=== PATIENT | male | born 1945 | race Caucasian/White ===

== ENCOUNTER 2017-04-14 04:44 | Emergency (ER) | payer MEDICARE, MEDICAID, OTHER ==
[2017-04-14] MEDS ORDERED: HEPARIN 25,000 UNITS/250 ML D5W BAG (100 UNITS/ML) (04:45)
[2017-04-14] MEDS ORDERED: NITROGLYCERIN 0.4 MG SUBL TABLET (04:45)
[2017-04-14] MEDS ORDERED: CLOPIDOGREL 300 MG TAB (PLAVIX) (04:45)
[2017-04-14] MEDS ORDERED: ASPIRIN 81 MG CHEW TABLET (04:45)
[2017-04-14] MEDS ORDERED: METOPROLOL 5 MG/5 ML VIAL (04:45)
[2017-04-14 05:05] LABS: BEDSIDE GLUCOSE 150 MG/DL (83-110)
[2017-04-14] MEDS: NITROGLYCERIN 0.4 MG SUBL TABLET SL ×3 (05:06→05:37)
[2017-04-14] MEDS: ASPIRIN 81 MG CHEW TABLET PO (05:06)
[2017-04-14] MEDS ORDERED: METOPROLOL 5 MG/5 ML VIAL As Ordered (05:07)
[2017-04-14] MEDS: HEPARIN SOD (PORCINE) 5000 UNITS/ML VIAL IV (05:09)
[2017-04-14] MEDS: METOPROLOL 5 MG/5 ML VIAL IV (05:13)
[2017-04-14 05:14] LABS: HEMOGLOBIN 16.2 g/dl (14.0-18.0); MEAN CORPUSCULAR HEMOGLOBIN 30.5 pg (27.0-33.0); MEAN CORPUSCULAR HGB CONC 33.1 g/dl (32.0-36.5); MEAN CORPUSCULAR VOLUME 92.1 fl (80.0-96.0); PLATELET COUNT, AUTOMATED 326 10^3/uL (150-450); RED BLOOD COUNT 5.32 10^6/uL (4.30-6.10); RED CELL DISTRIBUTION WIDTH 13.2 % (11.5-14.5)
[2017-04-14] MEDS: TENECTEPLASE 50 MG KIT (TNKase)(J3101) IV (05:16)
[2017-04-14] MEDS: HEPARIN DRIP 25,000 UNITS in APPROPRIATE DILUENT 1 EA IV (05:22)
[2017-04-14 05:23] LABS: POSITIVE DIFF POS FLAG; WHITE BLOOD COUNT 15.4 10^3/uL (4.0-10.0)
[2017-04-14] MEDS: CLOPIDOGREL 300 MG TAB (PLAVIX) PO (05:23)
[2017-04-14 05:24] LABS: ADD MANUAL DIFFER YES; DIFF SLIDE NUMBER 100
[2017-04-14 05:28] LABS: PROTHROMBIN TIME 12.2 SECONDS (12.4-14.5)
[2017-04-14 05:29] LABS: PARTIAL THROMBOPLASTIN TIME 30.7 SECONDS (26.8-37.9)
[2017-04-14] MEDS: MORPHINE 2 MG/ML 1ML SYRINGE (J2270) IV ×4 (05:34→05:59)
[2017-04-14 05:38] LABS: ANION GAP 6 MEQ/L (8-16); BLOOD UREA NITROGEN 17 MG/DL (7-18); CALCIUM LEVEL 10.4 MG/DL (8.8-10.2); CARBON DIOXIDE LEVEL 30 MEQ/L (21-32); CHLORIDE LEVEL 103 MEQ/L (98-107); CK-MB VALUE MASS 5.6 NG/ML (0.0-3.6); CPK CREATINE PHOSPHOKINASE 118 U/L (39-308); CREATININE FOR GFR 0.94 MG/DL (0.70-1.30); EOSINOPHILS 2 % (0-5); GLOMERULAR FILTRATION RATE > 60.0 (>42); GLUCOSE, FASTING 160 MG/DL (70-100); LYMPHOCYTES 36 % (16-52); MB/CK RELATIVE INDEX 4.74 (< OR =4); MONOCYTES 7 % (0-8); NEUTROPHILS 55 % (35-75); PLATELET ESTIMATE INCREASED (NORMAL); SODIUM LEVEL 139 MEQ/L (136-145)
[2017-04-14 05:48] LABS: TROPONIN I 1.93 NG/ML (< 0.10)
[2017-04-14] MEDS ORDERED: HEPARIN 25,000 UNITS/250 ML D5W BAG (100 UNITS/ML) As Ordered (09:19)
== END 2017-04-14 06:12 | disposition short-term general hospital (02) ==
LOC: M ED 04:44
DX: I21.19 ST elevation (STEMI) myocardial infarction involving other coronary artery of inferior wall (principal); R06.02 Shortness of breath; R00.0 Tachycardia, unspecified; F32.9 Major depressive disorder, single episode, unspecified; F17.210 Nicotine dependence, cigarettes, uncomplicated
CPT/HCPCS: J3101

== ENCOUNTER 2018-04-09 16:48 | Inpatient (IN) | payer MEDICARE ==
[~2018-04-09] VITALS: Ht 175.3 cm; Wt 95.0 kg
[2018-04-09] MEDS ORDERED: NS 1,000 ML IV ONE (17:15)
--- NOTE | 2018-04-09 17:37 | REP ---
Clinical: Syncope. Comparison: 04/14/2017. Findings: The mediastinum and cardiac silhouette are stable and within normal limits for portable technique. The lung gonzalez are clear without acute consolidation, effusion, or pneumothorax. Skeletal structures are intact. Impression: No acute cardiopulmonary process appreciated. Electronically Signed by Vahe Hitchcock MD 04/09/2018 05:28 P
--- NOTE | 2018-04-09 17:47 | REP ---
Clinical: Syncope. Findings: Age-related atrophy and microvascular ischemic changes are appreciated. The ventricles and sulci are symmetric. Shields-white differentiation is maintained. There is no evidence for acute intracranial hemorrhage, mass/mass effect, pathology or infarction. No extra-axial fluid collection. Calvarium is intact. Mastoid air cells are clear. Impression: Age related atrophy and microvascular ischemic changes. No acute intracranial hemorrhage, infarction, or mass/mass effect. Electronically Signed by Vahe Hitchcock MD 04/09/2018 05:38 P
--- NOTE | 2018-04-09 17:51 | REP ---
Clinical: Syncope. Technique: Axial noncontrast images from the skull base to the thoracic inlet with coronal and sagittal re-formations Findings: Advanced multilevel degenerative changes include osteophytosis, endplate sclerosis, disc space narrowing and exaggerated lordosis. There is no evidence for acute fracture / compression injury or subluxation. Spinal canal is patent. Paravertebral soft tissues are normal. Impression: Advanced multilevel degenerative spondylosis. No evidence for acute pathology or trauma/injury. Electronically Signed by Vahe Hitchcock MD 04/09/2018 05:42 P
[2018-04-09 19:21] LABS: BASO % 0.3 % (0.0-1.0); EOS # 0.1 10^3/uL (0.0-0.50); EOS % 0.7 % (0.0-3.0); HEMATOCRIT 43.3 % (42.0-52.0); HEMOGLOBIN 14.3 g/dl (13.5-17.5); LYMPH # 0.5 10^3/uL (1.5-4.5); LYMPH % 4.5 % (24.0-44.0); MEAN CORPUSCULAR VOLUME 93.9 fl (80.0-96.0); MONO # 0.9 10^3/uL (0.0-0.8); MONO % 7.3 % (0.0-5.0); NEUTROPHILS # 10.4 10^3/uL (1.8-7.7); NEUTROPHILS % 86.8 % (36.0-66.0); PLATELET COUNT, AUTOMATED 239 10^3/uL (150-450); RED BLOOD COUNT 4.61 10^6/uL (4.30-6.10)
[2018-04-09 19:34] LABS: INR 1.01; PROTHROMBIN TIME 13.4 SECONDS (12.1-14.4)
[2018-04-09 19:35] LABS: PARTIAL THROMBOPLASTIN TIME 31.2 SECONDS (25.4-37.6)
[2018-04-09 19:41] LABS: AMPHETAMINES LEVEL URINE NEGATIVE (NEGATIVE); BARBITURATES URINE NEGATIVE (NEGATIVE); BENZODIAZEPINES URINE NEGATIVE (NEGATIVE); CANNABINOIDS URINE NEGATIVE (NEGATIVE); COCAINE METABOLITE URINE NEGATIVE (NEGATIVE); METHADONE URINE NEGATIVE (NEGATIVE); OPIATES URINE NEGATIVE (NEGATIVE); PHENCYCLIDINE URINE NEGATIVE (NEGATIVE)
[2018-04-09 19:49] LABS: BLOOD UREA NITROGEN 15 MG/DL (7-18); CALCIUM LEVEL 8.4 MG/DL (8.8-10.2); CARBON DIOXIDE LEVEL 24 MEQ/L (21-32); CHLORIDE LEVEL 105 MEQ/L (98-107); CPK CREATINE PHOSPHOKINASE 138 U/L (39-308); CREATININE FOR GFR 0.91 MG/DL (0.70-1.30); ETHYL ALCOHOL (ETHANOL) 0.006 % (0.000-0.010); FREE T4 1.14 NG/DL (0.76-1.46); GLOMERULAR FILTRATION RATE > 60.0 (>42); GLUCOSE, FASTING 89 MG/DL (70-100); MAGNESIUM LEVEL 1.8 MG/DL (1.8-2.4); MB/CK RELATIVE INDEX 1.09 (< OR =4); POTASSIUM SERUM 3.7 MEQ/L (3.5-5.1); SODIUM LEVEL 138 MEQ/L (136-145); TROPONIN I 0.03 NG/ML (< 0.10)
[2018-04-09 19:51] LABS: INFLUENZA A AMPLIFICATION POSITIVE (NEGATIVE); INFLUENZA B AMPLIFICATION NEGATIVE (NEGATIVE)
[2018-04-09] MEDS ORDERED: OSELTAMIVIR PHOSPHATE 75 MG CAP (TAMIFLU) PO ONE (20:15)
[2018-04-09] MEDS ORDERED: FISH7.5C PO (20:21)
[2018-04-09] MEDS ORDERED: NITR0.4S14 SL (20:21)
[2018-04-09] MEDS ORDERED: FURO20TA2 PO (20:21)
[2018-04-09] MEDS ORDERED: PANT40TA3 PO (20:21)
[2018-04-09] MEDS ORDERED: NYQU1CAP PO (20:21)
[2018-04-09] MEDS ORDERED: LISI2.5T5 PO (20:21)
[2018-04-09] MEDS ORDERED: CLOP75TA2 PO (20:21)
[2018-04-09] MEDS ORDERED: ATOR80TA59 PO (20:21)
[2018-04-09] MEDS ORDERED: CARV12.5 PO (20:21)
[2018-04-09] MEDS ORDERED: ACETAMINOPHEN TAB 650MG DOSE (2X325MG) As Ordered ONE (20:22)
[2018-04-09] MEDS: NS 1,000 ML IV SCH (20:28)
[2018-04-09] MEDS ORDERED: ONDANSETRON 4MG/2ML VIAL (J2405) IV PRN (20:30)
[2018-04-09] MEDS ORDERED: IPRATROPIUM 0.5MG/ALBUTEROL 2.5MG INH SOL UD 3ML (DUONEB)(J7620) NEB PRN (20:30)
[2018-04-09] MEDS: ACETAMINOPHEN TAB 650MG DOSE (2X325MG) PO PRN (20:41)
[2018-04-09] MEDS ORDERED: NITROGLYCERIN 0.4 MG SUBL TABLET SL PRN (20:45)
[2018-04-09] MEDS: CARVedilol 12.5 MG TAB PO SCH (21:00)
[2018-04-09] MEDS: HEPARIN SOD (PORCINE) 5000 UNITS/ML VIAL SC SCH (22:00)
--- NOTE | 2018-04-10 03:02 | HPE ---
DATE OF ADMISSION: 04/09/2018 CHIEF COMPLAINT: Cough, runny nose, diarrhea, body aches, a syncopal episode. HISTORY OF PRESENT ILLNESS: The patient is a 72-year-old male with a significant past medical history of coronary artery disease (CAD), hypertensive heart disease. He presents to the emergency room with a syncopal episode today which he states he was at the gas station. While he was walking out he felt generalized weakness, complete loss of consciousness. He has no focal neurological deficits. He denied any chest pain, shortness of breath. He denied any jerky type movements, urinary incontinence or tongue biting. Prior to the onset of the symptoms for the last day and a half the patient has been having a cough with runny nose, achy joints, nausea and vomiting today as well as diarrhea. In the emergency room he was noted to be flu positive. PAST MEDICAL HISTORY: See history of the present illness (HPI). PAST SURGICAL HISTORY: Wrist surgery. HOME MEDICATIONS: Include: - Lipitor - Coreg - Plavix - Lasix - lisinopril - nitroglycerin as needed - Protonix ALLERGIES: No known drug allergies. SOCIAL HISTORY: He is a former smoker. Denies alcohol or illicit drug use. FAMILY HISTORY: Family history of heart disease and cancers. REVIEW OF SYSTEMS: A 12-point review of systems was completed, all of which were negative except those listed in the history of the present illness. VITAL SIGNS ON ADMISSION: Temperature maximum (T-max) 101, pulse of 120, respirations of 24, saturating at 99% on room air. PHYSICAL EXAMINATION: General: He is well nourished, in no apparent distress. Head is normocephalic, atraumatic. Eyes: Extraocular movements are intact. Pupils equal, round, reactive to light. Neck is supple. No jugular venous pressure (JVP). Lungs: Clear to auscultation. No crackles or wheezes. Cardiovascular: Tachycardic, normal S1, S2. No murmurs, gallops, or rubs. Abdomen: Soft, nontender, nondistended, positive bowel sounds. No rebound or guarding. Extremities: No pitting edema or calf tenderness. Skin: Multiple excoriations and papules disseminated. Neurological: Alert and oriented (A and O) times three. No focal deficits appreciated on the examination. LABORATORIES AND IMAGING COMPLETED IN THE EMERGENCY ROOM: White count of 12, hemoglobin and hematocrit (H and H) of 14/43, platelet count of 239. Coagulation panel (coags) within normal limits. Chemistry: BUN and creatinine 15/0.19. Toxicology is unremarkable. Influenza A is positive. IMAGING: CT of the cervical spine (C-spine): Advanced multilevel degenerative spondylolysis. No evidence of acute pathology or trauma. Chest x-ray: No acute cardiopulmonary process appreciated. CT of the head: Microvascular ischemic changes. ASSESSMENT AND PLAN: 1. Syncope likely due to sepsis secondary to influenza A. Will start on intravenous (IV) fluids, Tamiflu, oxygen as needed, DuoNebs, intravenous (IV) fluids. Will rule out other causes, though unlikely. Will keep on telemetry to rule out arrhythmia. Will recycle the troponins. Will get an echocardiogram and ultrasound, carotid Dopplers as well as do daily orthostatics. 2. For history of coronary artery disease (CAD), hypertensive heart disease: Will continue his home medications, Coreg, lisinopril, Lasix, Plavix. 3. For gastroesophageal reflux disease (GERD): Will continue Prilosec. 4. Supportive deep vein thrombosis (DVT) prophylaxis: Heparin subcutaneous. 5. Gastrointestinal (GI) prophylaxis: The patient is on Protonix. 6. Diet: Cardiac.
[2018-04-10] MEDS: HEPARIN SOD (PORCINE) 5000 UNITS/ML VIAL SC SCH ×3 (05:58→20:59)
[2018-04-10 07:26] LABS: HEMATOCRIT 39.6 % (42.0-52.0); HEMOGLOBIN 13.1 g/dl (13.5-17.5); MEAN CORPUSCULAR HEMOGLOBIN 30.9 pg (27.0-33.0); MEAN CORPUSCULAR HGB CONC 33.1 g/dl (32.0-36.5); MEAN CORPUSCULAR VOLUME 93.4 fl (80.0-96.0); PLATELET COUNT, AUTOMATED 210 10^3/uL (150-450); RED BLOOD COUNT 4.24 10^6/uL (4.30-6.10); WHITE BLOOD COUNT 9.3 10^3/uL (4.0-10.0)
[2018-04-10] MEDS: NS 1,000 ML IV SCH (07:35)
[2018-04-10 07:53] LABS: BLOOD UREA NITROGEN 12 MG/DL (7-18); CALCIUM LEVEL 7.6 MG/DL (8.8-10.2); CARBON DIOXIDE LEVEL 24 MEQ/L (21-32); CHLORIDE LEVEL 107 MEQ/L (98-107); CREATININE FOR GFR 0.87 MG/DL (0.70-1.30); GLOMERULAR FILTRATION RATE > 60.0 (>42); GLUCOSE, FASTING 89 MG/DL (70-100); POTASSIUM SERUM 3.5 MEQ/L (3.5-5.1); SODIUM LEVEL 138 MEQ/L (136-145)
[2018-04-10] MEDS ORDERED: POTASSIUM CHLORIDE 10 MEQ SR TABLET PO ONE (08:30)
[2018-04-10] MEDS: CARVedilol 12.5 MG TAB PO SCH ×2 (08:40→20:59)
[2018-04-10] MEDS: OMEGA-3 1000MG CAPSULE PO SCH (08:40)
[2018-04-10] MEDS: LISINOPRIL *2.5 MG* TAB PO SCH (08:41)
[2018-04-10] MEDS: PANTOPRAZOLE 40MG TAB (PROTONIX) PO SCH (08:41)
[2018-04-10] MEDS: CLOPIDOGREL 75 MG TAB PO SCH (08:41)
[2018-04-10] MEDS: OSELTAMIVIR PHOSPHATE 75 MG CAP (TAMIFLU) PO SCH ×2 (08:41→20:59)
[2018-04-10] MEDS: ATORVASTATIN 20 MG TAB PO SCH (08:42)
[2018-04-10 09:00] VITALS: BP_SYST 116; BP_SYST 119; BP_SYST 124; BP_DIAS 58; BP_DIAS 60
[2018-04-10] MEDS ORDERED: FUROSEMIDE 20 MG TAB PO SCH (09:00)
[2018-04-10 13:03] VITALS: BP 136/67
--- NOTE | 2018-04-10 14:42 | IPN ---
DATE: 04/10/2018 SUBJECTIVE: Patient admitted overnight with syncope and found to have influenza A. Currently patient reported mild cough. Denies any shortness of breath. Feeling much better. Orthostatic negative. Tolerating oral. Resolving diarrhea. VITAL SIGNS: Temperature 96.8, pulse 80, respirations 20, blood pressure 116/58, pulse oximetry 96% on room air. LABORATORY: WBC 9.3, hemoglobin/hematocrit (H/H) 13.1/39.6, platelets 210. Chemistry: Sodium 138, potassium 3.5, chloride 107, bicarbonate 24, BUN 12, creatinine 0.87. PHYSICAL EXAMINATION: The patient is well nourished in no acute distress. Orthostatic negative. HEENT: Normocephalic, atraumatic. Pulmonary: Bilateral clear. Cardiac: Regular. S1 and S2. Abdomen: Soft. Nontender. Positive bowel sounds. Extremities: No clubbing, cyanosis or edema. ASSESSMENT AND PLAN: This is a 72-year-old male patient with underlying medical history of coronary artery disease, hypertensive heart disease, and dyslipidemia who presented with syncopal episode and found to have influenza A. PROBLEMS: 1. Syncope, likely secondary to influenza A infection with also nausea, vomiting and diarrhea. Tamiflu and IV fluids have been given. Orthostatics have been negative. Echocardiogram and carotid ultrasound have been ordered. Social work has been consulted. Serial cardiac enzymes and telemetry monitoring. Physical therapy. 2. Influenza A infection. Tamiflu. 3. Nausea, vomiting and diarrhea likely secondary to viral infection. Currently resolved. Tolerating oral. 4. History of coronary artery disease with hypertensive heart disease. Continue Coreg and Plavix. Lasix on hold. Continue lisinopril. Monitor blood pressure. 5. Bed bugs. soaker soda worker on consult. Contact precautions. Supportive care. 6. Dyslipidemia. Continue statin. 7. Deep vein thrombosis (DVT) prophylaxis. Heparin subcutaneous. 8. Gastroesophageal reflux disease (GERD. Continue proton pump inhibitor (PPI). DISPOSITION: Pending social sciences lecturer, physical therapy, carotid ultrasound, echocardiogram.
[2018-04-10 20:53] VITALS: BP 119/86
--- NOTE | 2018-04-10 21:36 | ECGEPIP ---
Stationary ECG Study [facility] Test Date: 2018-04-10 Pat Name: STEPHANIE ELIZALDE Department: Room: Gender: M Roller Leveler: alyse : 1945 Requested By: SOPHIA MURILLO Order Number: [id number] Reading MD: Natalio Calix Measurements Intervals [place] Rate: 73 P: 75 AK: 153 QRS: -23 QRSD: 96 T: -25 QT: 405 QTc: 449 Interpretive Statements SINUS RHYTHM WITH MILD INTRAVENTRICULAR CONDUCTION DELAY INFERIOR MYOCARDIAL INFARCTION, OF INDETERMINATE AGE NO PRIOR TRACING IN THE SYSTEM Electronically Signed On 04-10-2018 21:35:54 EST by Natalio Calix
[2018-04-11] MEDS: HEPARIN SOD (PORCINE) 5000 UNITS/ML VIAL SC SCH ×3 (05:56→21:20)
[2018-04-11 06:00] VITALS: BP 136/76
[2018-04-11 06:44] LABS: HEMATOCRIT 40.3 % (42.0-52.0); HEMOGLOBIN 13.1 g/dl (13.5-17.5); MEAN CORPUSCULAR HGB CONC 32.5 g/dl (32.0-36.5); MEAN CORPUSCULAR VOLUME 95.3 fl (80.0-96.0); PLATELET COUNT, AUTOMATED 208 10^3/uL (150-450); RED BLOOD COUNT 4.23 10^6/uL (4.30-6.10); WHITE BLOOD COUNT 5.8 10^3/uL (4.0-10.0)
[2018-04-11 06:58] LABS: BLOOD UREA NITROGEN 14 MG/DL (7-18); CALCIUM LEVEL 7.7 MG/DL (8.8-10.2); CARBON DIOXIDE LEVEL 26 MEQ/L (21-32); CHLORIDE LEVEL 111 MEQ/L (98-107); CREATININE FOR GFR 0.83 MG/DL (0.70-1.30); GLOMERULAR FILTRATION RATE > 60.0 (>42); GLUCOSE, FASTING 93 MG/DL (70-100); MAGNESIUM LEVEL 2.2 MG/DL (1.8-2.4); POTASSIUM SERUM 4.1 MEQ/L (3.5-5.1); SODIUM LEVEL 142 MEQ/L (136-145)
[2018-04-11] MEDS: OSELTAMIVIR PHOSPHATE 75 MG CAP (TAMIFLU) PO SCH ×2 (09:00→21:21)
[2018-04-11] MEDS: CLOPIDOGREL 75 MG TAB PO SCH (09:23)
[2018-04-11] MEDS: LISINOPRIL *2.5 MG* TAB PO SCH (09:23)
[2018-04-11] MEDS: CARVedilol 12.5 MG TAB PO SCH ×2 (09:24→21:20)
[2018-04-11] MEDS: ATORVASTATIN 20 MG TAB PO SCH (09:24)
[2018-04-11] MEDS: PANTOPRAZOLE 40MG TAB (PROTONIX) PO SCH (09:24)
--- NOTE | 2018-04-11 10:11 | IPNPDOC ---
Text Note Date of Service The patient was seen on 04/11/18. NOTE Subjective: Patient is a 72-year-old male who presented to the hospital on 04/09/2018 after passing out at the gas station. Patient says that for the 2-3 days prior he had been dealing with a runny nose, coughing, body aches. Patient was found to be influenza A positive. Patient also had bedbug bites on his body. Today, the patient, patient says he is feeling better. He's been able to get up and walk around. He was experiencing some nausea vomiting and diarrhea prior to coming in the hospital however, he says this is subsided. He's been eating and drinking without difficulty. He did have a normal bowel movement yesterday and has not had a bowel movement yet today. Patient was able to pass PT today. Patient says he does have some mild muscle aches however, these are much imp roved from his previous muscle aches. Review of systems General: Patient denies fevers HEENT: Patient denies headaches Cardiovascular: Patient denies chest pain Respiratory: Patient denies shortness of breath, cough GI: Patient denies abdominal pain, nausea, vomiting, diarrhea : Patient denies pain or difficulty with urination Neurological: Patient denies numbness or tingling in extremities Extremities: Patient denies swelling or pain in extremities Objective: Vitals: (see below) General: Alert and oriented male patient who was sitting on the side of the bed drinking coffee when I walked in. Patient was in no acute distress HEENT: Normocephalic, atraumatic, moist mucous membranes. Neck: No JVD or lymphadenopathy Cardiac: RRR, No murmurs Pulm: Clear to auscultation b/l. No wheezing, rhonchi Abd: NT/ND + BS Ext: No edema or cyanosis. Radial, posterior tibial, and dorsalis pedis pulses equal bilaterally. Labs (see below) Images: Carotid ultrasound and echocardiogram are still pending. Assessment/Plan 1. Syncope. This is most likely secondary to influenza A infection. Patient has not felt like he is going to syncopize since being in the hospital. Orthostatic blood pressure was negative. Echocardiogram and carotid ultrasound are still pending. Telemetry monitoring his showed no events. Patient has been cleared by physical therapy. 2. Influenza A infection. Patient is currently on day 3 of 5 of Tamiflu. We'll continue to monitor. 3. Nausea, vomiting, and diarrhea. This is likely secondary to patient's viral infection. It is resolved and the patient is tolerating oral intake without difficulty. 4. History of coronary artery disease with hypertensive heart disease. We're continuing carvedilol and clopidogrel. Lasix currently on hold due to syncope. We will continue his lisinopril and monitor the patient's blood pressure. 5. Bed bugs. Social workers on consult. We will have to contact them to make sure someone is going to clean the patient's house in order to read the bed bugs. Patient is not complaining of any itching at this time. 6. Dyslipidemia. We'll continue patient's home statin 7. Gastroesophageal reflux disease. Continue the patient's home PPI DVT prophy: Heparin subcutaneous Dispo: Pending carotid ultrasound, echocardiogram, and social services analyst. VS,Fishbone, I+O VS, Fishbone, I+O Laboratory Tests 04/11/18 06:28 Red Blood Count 4.23 L, Mean Corpuscular Volume 95.3, Mean Corpuscular Hemoglobin 31.0, Mean Corpuscular Hemoglobin Concent 32.5, Red Cell Distribution Width 13.8, Calcium Level 7.7 L Vital Signs Date Time Temp Pulse Resp B/P (MAP) Pulse Ox O2 Delivery O2 Flow Rate FiO2 04/11/18 09:24 75 136/76 04/11/18 06:00 97.8 20 94 04/10/18 04:21 Nasal Cannula 2.0 I&O- Last 24 Hours up to 6 AM 04/11/18 06:00 Intake Total 2910 ml Output Total 1000 ml Balance 1910 ml GME ATTESTATION GME ATTESTATION My faculty preceptor for this patient encounter was physically present during the encounter and was fully available. All aspects of the patient interview, examination, medical decision making process, and medical care plan development were reviewed and approved by the faculty preceptor. The faculty preceptor is aware and concurs with the plan as stated in the body of this note and will attest to such by his/her cosignature. ATTENDING NOTE I have both independently examined this patient as well as reviewed the note I have discussed in detail the findings and plan of treatment as documented in the note. I will continue to follow the patient and offer further guidance to the patients care as necessary during this hospital stay. BOOGIE De La Vega MD, DO Apr 11, 2018 10:11 SARAH BETH GUERRERO MD Apr 15, 2018 17:29
[2018-04-11] MEDS: OMEGA-3 1000MG CAPSULE PO SCH (10:51)
[2018-04-11 14:00] VITALS: BP 120/75
[2018-04-11] MEDS: ACETAMINOPHEN TAB 650MG DOSE (2X325MG) PO PRN (21:27)
[2018-04-11 22:00] VITALS: BP 121/68
[2018-04-12] MEDS: HEPARIN SOD (PORCINE) 5000 UNITS/ML VIAL SC SCH ×3 (05:04→21:36)
[2018-04-12 06:00] VITALS: BP 123/74
[2018-04-12 06:08] LABS: HEMATOCRIT 40.7 % (42.0-52.0); HEMOGLOBIN 13.1 g/dl (13.5-17.5); MEAN CORPUSCULAR HEMOGLOBIN 30.8 pg (27.0-33.0); MEAN CORPUSCULAR HGB CONC 32.2 g/dl (32.0-36.5); MEAN CORPUSCULAR VOLUME 95.5 fl (80.0-96.0); PLATELET COUNT, AUTOMATED 222 10^3/uL (150-450); RED BLOOD COUNT 4.26 10^6/uL (4.30-6.10); WHITE BLOOD COUNT 5.9 10^3/uL (4.0-10.0)
[2018-04-12 06:39] LABS: BLOOD UREA NITROGEN 13 MG/DL (7-18); CALCIUM LEVEL 7.9 MG/DL (8.8-10.2); CARBON DIOXIDE LEVEL 26 MEQ/L (21-32); CHLORIDE LEVEL 109 MEQ/L (98-107); CREATININE FOR GFR 0.76 MG/DL (0.70-1.30); GLOMERULAR FILTRATION RATE > 60.0 (>42); GLUCOSE, FASTING 90 MG/DL (70-100); MAGNESIUM LEVEL 2.4 MG/DL (1.8-2.4); POTASSIUM SERUM 4.1 MEQ/L (3.5-5.1); SODIUM LEVEL 142 MEQ/L (136-145)
--- NOTE | 2018-04-12 08:36 | REP ---
Clinical: Syncope . Technique: Shields scale and color Doppler evaluation using linear high frequency transducer Findings: Two-dimensional shields scale and color images demonstrate minimal bilateral mixed atheromatous plaquing with normal laminar flow and no appreciable narrowing. Color Doppler interrogation demonstrates normal arterial wave patterns and velocities with no significant spectral broadening. Normal flow direction is appreciated in the left vertebral artery while the right vertebral artery was not identifiable. RIGHT (cm/s) LEFT (cm/s) ICA peak systolic velocity 86.0 57.7 ICA diastolic velocity 17.5 15.0 ECA peak systolic velocity 91.2 110.1 CCA peak systolic velocity 87.9 73.1 ICA/CCA ratio 0.98 0.79 Impression: 1. No hemodynamically significant areas of narrowing or stenosis appreciated. Based on set standards narrowing falls within the less than 50% range. 2. Nonvisualization of the right vertebral artery. Electronically Signed by Vahe Hitchcock MD 04/12/2018 08:27 A
[2018-04-12] MEDS: PANTOPRAZOLE 40MG TAB (PROTONIX) PO SCH (09:12)
[2018-04-12] MEDS: CLOPIDOGREL 75 MG TAB PO SCH (09:12)
[2018-04-12] MEDS: OSELTAMIVIR PHOSPHATE 75 MG CAP (TAMIFLU) PO SCH ×2 (09:12→20:18)
[2018-04-12] MEDS: ATORVASTATIN 20 MG TAB PO SCH (09:12)
[2018-04-12] MEDS: OMEGA-3 1000MG CAPSULE PO SCH (09:12)
[2018-04-12] MEDS: LISINOPRIL *2.5 MG* TAB PO SCH (09:12)
[2018-04-12] MEDS: CARVedilol 12.5 MG TAB PO SCH ×2 (09:13→20:51)
[2018-04-12 14:00] VITALS: BP 120/70
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
--- NOTE | 2018-04-12 19:28 | ECHO ---
DATE OF PROCEDURE: 04/11/2018 REFERRING PHYSICIAN: Anali Thompson MD INDICATION: Syncope. HEIGHT: 175 cm WEIGHT: 95 kg 2D MEASUREMENTS: Aortic root: 3.3 cm Left atrium: 4.2 cm Ventricular septum: 1.07 cm Posterior wall: 1.06 cm Left ventricle diastole: 5.3 cm Aortic annulus: 2.2 cm Inferior vena cava: 1.8 cm DOPPLER MEASUREMENTS: Aortic valve velocity: 125 cm/s LVOT velocity: 83.5 cm LVOT VTI: 17.8 cm Mitral E velocity: 66.6 cm/s Mitral A velocity: 54.3 cm/s Mitral deceleration time: 156 ms Trace tricuspid regurgitation. Estimated pulmonary artery systolic pressure 33 mmHg. MITRAL ANNULAR TISSUE DOPPLER: E prime septal: 7.0 cm/s E prime lateral: 8.9 cm/s DESCRIPTION: Rhythm was sinus rhythm and sinus bradycardia observed. Image quality was fair. No pericardial effusion. This was a 2D, M-mode, color flow Doppler and pulse wave Doppler examination that included mitral annular tissue Doppler. CONCLUSIONS: 1. Normal left ventricle internal dimensions and wall thickness. Normal regional left ventricle (LV) wall motion and wall thickening. Normal LV systolic function. Left ventricular ejection fraction (LVEF) 55% by visual estimate. Normal LV diastolic function. 2. Suggestive of slight elevation of pulmonary artery systolic pressure (33 mmHg). 3. Mild aortic valve sclerosis of a three-cuspid aortic valve involving the posterior aortic cusp. No aortic regurgitation. 4. Normal central venous pressure at the time of the study (estimated to be 5-10 mmHg. 5. Otherwise normal appearing echocardiogram Doppler.
[2018-04-12] MEDS: ACETAMINOPHEN TAB 650MG DOSE (2X325MG) PO PRN (20:17)
[2018-04-12 22:00] VITALS: BP 116/64
[2018-04-13] MEDS: HEPARIN SOD (PORCINE) 5000 UNITS/ML VIAL SC SCH (05:30)
[2018-04-13 06:00] VITALS: BP 118/72
[2018-04-13 06:33] LABS: MEAN CORPUSCULAR HEMOGLOBIN 30.8 pg (27.0-33.0); MEAN CORPUSCULAR HGB CONC 32.5 g/dl (32.0-36.5); MEAN CORPUSCULAR VOLUME 94.8 fl (80.0-96.0); PLATELET COUNT, AUTOMATED 242 10^3/uL (150-450); RED BLOOD COUNT 4.22 10^6/uL (4.30-6.10); WHITE BLOOD COUNT 6.8 10^3/uL (4.0-10.0)
[2018-04-13 06:52] LABS: BLOOD UREA NITROGEN 12 MG/DL (7-18); CALCIUM LEVEL 8.1 MG/DL (8.8-10.2); CARBON DIOXIDE LEVEL 28 MEQ/L (21-32); CHLORIDE LEVEL 108 MEQ/L (98-107); CREATININE FOR GFR 0.88 MG/DL (0.70-1.30); GLOMERULAR FILTRATION RATE > 60.0 (>42); GLUCOSE, FASTING 91 MG/DL (70-100); MAGNESIUM LEVEL 2.5 MG/DL (1.8-2.4); POTASSIUM SERUM 4.2 MEQ/L (3.5-5.1); SODIUM LEVEL 142 MEQ/L (136-145)
[2018-04-13] MEDS: OSELTAMIVIR PHOSPHATE 75 MG CAP (TAMIFLU) PO SCH (09:05)
[2018-04-13] MEDS: CLOPIDOGREL 75 MG TAB PO SCH (09:05)
[2018-04-13] MEDS: OMEGA-3 1000MG CAPSULE PO SCH (09:05)
[2018-04-13] MEDS: ATORVASTATIN 20 MG TAB PO SCH (09:05)
[2018-04-13] MEDS: PANTOPRAZOLE 40MG TAB (PROTONIX) PO SCH (09:05)
[2018-04-13 09:06] VITALS: BP 118/72
[2018-04-13] MEDS: LISINOPRIL *2.5 MG* TAB PO SCH (09:06)
[2018-04-13] MEDS: CARVedilol 12.5 MG TAB PO SCH (09:06)
[2018-04-13] MEDS ORDERED: DOXY-350 PO (10:52)
[2018-04-13] MEDS ORDERED: OSEL75CA2 PO (11:56)
--- NOTE | 2018-04-13 19:00 | DS.PDOC ---
Discharge Summary General Date of Admission Apr 09, 2018 at 20:28 Date of Discharge 04/13/18 Primary Care Physician: JUJU ASHLEY MD Attending Physician: RACHANA VAUGHN MD Discharge Summary PROCEDURES PERFORMED DURING STAY: None. ADMITTING/DISCHARGE DIAGNOSES: 1. Near syncope 2. Influenza A infection 3. Nausea, vomiting, diarrhea 4. History of coronary artery disease 5. Bedbug infestation 6. Dyslipidemia. 7. Gastroesophageal reflux disease COMPLICATIONS/CHIEF COMPLAINT: Near syncope and feeling ill HISTORY OF PRESENT ILLNESS/HOSPITAL COURSE: Patient is a 72-year-old male who presented to the hospital on 04/09/2018 after going to the gas station and feeling like he was going to pass out while exiting his car. Patient states that he had been feeling ill with a running nose and a cough for couple days prior to that. Patient states that after he had the near syncopal episode he went to the emergency room. In the emergency room, he was diagnosed with influenza A. During patient's hospitalization patient was worked up for other causes for his near syncopal episode. Patient's carotid ultrasound was negative for stenosis. Patient's echocardiogram was also negative. Patient worked with social work for his bedbug infestation. They told him how to eradicate his apartment and patient said he had contacted his landlord. Patient continues to improve as time went on. Patient no longer complained of any nausea, vomiting, or diarrhea symptoms throughout his hospitalization. On 04/13/2018, patient was cleared for discharge home. DISCHARGE MEDICATIONS: Please see below. ALLERGIES: Please see below. PHYSICAL EXAMINATION ON DISCHARGE: Vitals: (see below) General: No acute distress, laying comfortably in bed. HEENT: Moist mucous membranes. Neck: No JVD or lymphadenopathy Cardiac: RRR, No murmurs Pulm: Clear to auscultation b/l. No wheezing, rhonchi Abd: NT/ND + BS Ext: No edema or cyanosis LABORATORY DATA: Please see below. IMAGING: A head CT performed on 04/09/2018 showed age-related atrophy and microvascular ischemic changes. There was no acute intracranial hemorrhage, infarction, or mass/mass effect. A chest x-ray performed on 04/09/2018 showed no acute cardiopulmonary process A cervical spine CT performed on 04/09/2018 showed advanced multilevel deg enerative spondylosis, no evidence of acute pathology or trauma/injury An ultrasound of the carotid arteries performed on 04/09/2017 showed no hemodynamically significant areas of narrowing or stenosis. There was non- visualization of the right vertebral artery. Echocardiogram performed on 04/11/2018 showed normal left ventricular internal dimensions and wall thickness with a visual estimation of ejection fraction to be 55%. There was suggestive slight elevation of pulmonary artery systolic press ures. Mild aortic valve sclerosis of a 3 cusp aortic valve involving a posterior aortic cusp. There was no aortic regurgitation. PROGNOSIS: Good ACTIVITY: As tolerated. DIET: Cardiac DISCHARGE PLAN/DISPOSITION: Discharge to home DISCHARGE INSTRUCTIONS: 1. Follow-up with primary care physician within 7-10 days. DISCHARGE CONDITION: Stable. TIME SPENT ON DISCHARGE: Greater than 30 minutes. Vital Signs/I&Os Vital Signs Date Time Temp Pulse Resp B/P (MAP) Pulse Ox O2 Delivery O2 Flow Rate FiO2 04/13/18 09:06 118/72 04/13/18 06:00 97.5 61 15 99 04/10/18 04:21 Nasal Cannula 2.0 I&O- Last 24 Hours up to 6 AM 04/13/18 06:00 Intake Total 1090 ml Balance 1090 ml Laboratory Data Labs 24H Laboratory Tests 2 04/13/18 05:50: Nucleated Red Blood Cells % (auto) 0.0, Anion Gap 6L, Glomerular Filtration Rate > 60.0, Blood Urea Nitrogen 12, Creatinine 0.88, Sodium Level 142, Potassium Level 4.2, Chloride Level 108H, Carbon Dioxide Level 28, Calcium Level 8.1L, Magnesium Level 2.5H CBC/BMP Laboratory Tests 04/13/18 05:50 Red Blood Count 4.22 L, Mean Corpuscular Volume 94.8, Mean Corpuscular Hemoglobin 30.8, Mean Corpuscular Hemoglobin Concent 32.5, Red Cell Distribution Width 13.7, Calcium Level 8.1 L Microbiology Microbiology 04/10/18 Blood Culture - Preliminary, Resulted No Growth after 72 hours. All specime... 04/10/18 Blood Culture - Preliminary, Resulted No Growth after 72 hours. All specime... Discharge Medications Scheduled Atorvastatin Calcium (Atorvastatin Calcium) 80 Mg Tab, 80 MG PO DAILY, (Reported) Carvedilol (Carvedilol) 12.5 Mg Tab, 12.5 MG PO BID, (Reported) Clopidogrel Bisulfate (Clopidogrel) 75 Mg Tab, 75 MG PO DAILY, (Reported) Doxycycline Hyclate (Doxycycline) 100 Mg Cap, 100 MG PO BID Furosemide (Furosemide) 20 Mg Tab, 20 MG PO DAILY, (Reported) Lisinopril (Lisinopril) 2.5 Mg Tab, 2.5 MG PO DAILY, (Reported) [place] 3 Polyunsat Fatty Acids (Fish Oil 1000 mg) 1 Cap Cap, 1 CAP PO DAILY, (Re ported) Oseltamivir Phosphate (Oseltamivir Phosphate) 75 Mg Cap, 75 MG PO BID Pantoprazole Sodium (Pantoprazole Sodium) 40 Mg Tab, 40 MG PO DAILY, (Reported) Scheduled PRN Nitroglycerin (Nitroglycerin) 0.4 Mg Sub, 0.4 MG SL Q5MP PRN for CHEST PAIN, (Reported) Allergies Coded Allergies: No Known Allergies (Unverified , 04/14/17) GME ATTESTATION GME ATTESTATION My faculty preceptor for this patient encounter was physically present during the encounter and was fully available. All aspects of the patient interview, examination, medical decision making process, and medical care plan development were reviewed and approved by the faculty preceptor. The faculty preceptor is aware and concurs with the plan as stated in the body of this note and will attest to such by his/her cosignature. BOOGIE HUDSON DO Apr 13, 2018 18:59
== END 2018-04-13 13:27 | disposition home or self-care (01) | DRG 866 ==
LOC: M ED 16:48 → M ED INP 20:28 → M MSPAV 04-10 13:03
PROVIDERS: ADMIT Internal Medicine; ATTEND Internal Medicine
DX: J10.2 Influenza due to other identified influenza virus with gastrointestinal manifestations (principal); I25.10 Atherosclerotic heart disease of native coronary artery without angina pectoris; I11.9 Hypertensive heart disease without heart failure; E78.5 Hyperlipidemia, unspecified; K21.9 Gastro-esophageal reflux disease without esophagitis; Z79.02 Long term (current) use of antithrombotics/antiplatelets; Z79.899 Other long term (current) drug therapy; Z87.891 Personal history of nicotine dependence; S20.96XA Insect bite (nonvenomous) of unspecified parts of thorax, initial encounter; S80.861A Insect bite (nonvenomous), right lower leg, initial encounter; S80.862A Insect bite (nonvenomous), left lower leg, initial encounter; W57.XXXA Bitten or stung by nonvenomous insect and other nonvenomous arthropods, initial encounter; Y92.002 Bathroom of unspecified non-institutional (private) residence as the place of occurrence of the external cause

== ENCOUNTER 2018-07-20 07:25 | Day surgery (SDC) | payer MEDICARE ==
[~2018-07-20] VITALS: Ht 175.3 cm; Wt 100.7 kg
[~2018-07-20 07:25] MED LIST: ACETAMINOPHEN 325 MG TAB PO PRN; ASPI81TA85 PO; ATOR80TA59 PO; BALANCED SALT IRRIGATION SOLUTION 500ML BAG (FOR OR EYE MACHINE) As Ordered ONE; CARV12.5 PO; CEFUROXIME 1MG/0.1ML INTRACAMERAL INJ As Ordered ONE; CLOP75TA2 PO; CYCLOPENTOLATE 2% OPHTH SOLN 2ML BTL OD ONE; DOXY-350 PO; FISH7.5C PO; FURO20TA2 PO; HEALON DUET PRO(HEALON 10MG/ML 0.55ML & HEALON ENDOCOAT 30MG/ML 0.85ML) As Ordered ONE; LIDOCAINE 1% SDV 5 ML VIAL As Ordered ONE; LIDOCAINE 3.5 % 1ML OPHTH TOPICAL GEL OU ONE; LISI-1046 PO; NITR0.4S14 SL; NYQU1CAP PO; OFLOXACIN 0.3 % (OCUFLOX) OPTH SOL 5ML OD ONE; OSEL75CA2 PO; PANT40TA3 PO; PHENYLEPHRINE 2.5% OPHTH SOL 2ML OD ONE; PHENYLEPHRINE HCL 10 % OPHTH. SOL 5ML OD PRN; POVIDONE-IODINE 5% OPHTH PREP SOL 30ML As Ordered ONE; PROPARACAINE 0.5% OPHTH SOL 15ML XX PRN; TROPICAMIDE 1% OPHTH SOLN 2ML OD ONE
[2018-07-20] MEDS ORDERED: fentaNYL 100 MCG/2 ML INJECTION (J3010) As Ordered ONE (07:45)
[2018-07-20] MEDS ORDERED: MIDAZOLAM INJ 2 MG/2 ML VIAL (J2250) As Ordered ONE (07:45)
[2018-07-20] MEDS ORDERED: TRYPAN BLUE 0.06 % 2.25 ML OPHTH SYR (VISIONBLUE) As Ordered ONE (09:42)
[2018-07-20] MEDS ORDERED: TRIMETHOBENZAMIDE 300 MG CAP PO PRN (10:30)
[2018-07-20] MEDS ORDERED: AcetaZOLAMIDE 500 MG ER CAP PO ONE (10:30)
[2018-07-20] MEDS ORDERED: KETOROLAC 0.5% OPHTH SOLN XX ONE (10:30)
[2018-07-20] MEDS ORDERED: ONDANSETRON 4MG/2ML VIAL (J2405) IV PRN (10:30)
--- NOTE | 2018-07-20 11:24 | RO ---
DATE OF PROCEDURE: 07/20/2018 PREPROCEDURE DIAGNOSIS: Mature cataract, right eye. POSTPROCEDURE DIAGNOSIS: Mature cataract, right eye. PROCEDURE PERFORMED: Phacoemulsification, posterior chamber intraocular lens implantation, capsule staining, and Optiwave Refractive Analysis. SURGEON: Nneka Rose MD KILN DOOR REPAIRER: ANESTHESIA: DESCRIPTION OF PROCEDURE: Patient was prepped and draped in the usual fashion. A lid speculum was placed between the lids. The eye was fixated. A stab incision was made to the anterior chamber. 1% non-preserved Lidocaine was instilled. Viscoelastic was instilled. The main incision was made with a 2.4 mm keratome at the temporal limbal region. The VisionBlue was then injected into the eye underneath the [place] on top of the anterior capsule. Fresh Healon was placed, and then capsulorrhexis was begun with a 27-gauge cystotome, carried out in a circular fashion with capsulorrhexis forceps. The capsule was nicely stained and easy to visualize. The lens was hydrodissected, and the phacoemulsification unit used to groove the nucleus into two meridians. The nucleus was cracked into four quadrants. Each quadrant was removed with the phacoemulsification unit. Any remaining cortex was removed with the I and A. The eye was refilled with viscoelastic, and the Optiwave Refractive Analysis (ORA) was used to make measurements. The lens chosen was an [id number] 17.5 diopters. The lens was placed into the capsular bag with no difficultly. The I and A was used to remove the viscoelastic, and balanced salt and cefuroxime were instilled after the wound was hydrated. Patient tolerated the procedure well and went to the recovery room in stable condition.
[2018-07-20 13:45] VITALS: BP 174/86
== END 2018-07-20 14:00 | disposition home or self-care (01) ==
LOC: M SDC 07:25
PROVIDERS: ATTEND Ophthalmology
DX: H25.89 Other age-related cataract (principal); I10 Essential (primary) hypertension; I25.10 Atherosclerotic heart disease of native coronary artery without angina pectoris; I25.2 Old myocardial infarction; Z98.61 Coronary angioplasty status; F17.210 Nicotine dependence, cigarettes, uncomplicated; Z79.899 Other long term (current) drug therapy; Z79.82 Long term (current) use of aspirin
CPT/HCPCS: 66984; 92015; J2250; J3010; V2632

== ENCOUNTER 2023-01-06 08:21 | Day surgery (SDC) | payer OTHER ==
[~2023-01-06] VITALS: Ht 175.3 cm; Wt 97.1 kg
[~2023-01-06 08:21] MED LIST changes: -ACETAMINOPHEN 325 MG TAB PO PRN; +ALKATAB12 PO; +ASPI81CH33 PO; -ASPI81TA85 PO; +ASPI81TA86 PO; -BALANCED SALT IRRIGATION SOLUTION 500ML BAG (FOR OR EYE MACHINE) As Ordered ONE; +BSS IRRIG/VANCO(10MG)/TOBRA(5MG)/EPINEPH(1:1000-0.5CC)500ML BAG-ORONLY IR ONE; +CYCLOPENTOLATE 1% OPHTH SOLN 2ML BTL OS SCH; -CYCLOPENTOLATE 2% OPHTH SOLN 2ML BTL OD ONE; -DOXY-350 PO; +DOXY-444 PO; +FISH10005 PO; -FISH7.5C PO; -HEALON DUET PRO(HEALON 10MG/ML 0.55ML & HEALON ENDOCOAT 30MG/ML 0.85ML) As Ordered ONE; +KP F1200 PO; -LIDOCAINE 1% SDV 5 ML VIAL As Ordered ONE; +LIDOCAINE 1% SDV 5ML VIAL As Ordered ONE; -LISI-1046 PO; +LISI2.5T9 PO; -OFLOXACIN 0.3 % (OCUFLOX) OPTH SOL 5ML OD ONE; +OFLOXACIN 0.3 % (OCUFLOX) OPTH SOL 5ML OS ONE; +PANT40TA29 PO; -PANT40TA3 PO; +PHENYLEPHRINE 10% OPHTH SOL 5ML OS PRN; -PHENYLEPHRINE 2.5% OPHTH SOL 2ML OD ONE; +PHENYLEPHRINE 2.5% OPHTH SOL 2ML OS SCH; -PHENYLEPHRINE HCL 10 % OPHTH. SOL 5ML OD PRN; -POVIDONE-IODINE 5% OPHTH PREP SOL 30ML As Ordered ONE; -PROPARACAINE 0.5% OPHTH SOL 15ML XX PRN; +TROPICAMIDE 1% OPHTH SOLN 15ML OS SCH; -TROPICAMIDE 1% OPHTH SOLN 2ML OD ONE
[2023-01-06] MEDS ORDERED: MIDAZOLAM INJ 2MG/2ML VIAL As Ordered ONE (10:27)
[2023-01-06] MEDS ORDERED: fentaNYL 100 MCG/2 ML INJECTION As Ordered ONE (10:28)
[2023-01-06 11:26] VITALS: BP 165/86; TEMP 97.2; O2SAT 97
== END 2023-01-06 11:55 | disposition home or self-care (01) ==
LOC: M SDC 08:21
PROVIDERS: ATTEND Ophthalmology
DX: H26.9 Unspecified cataract (principal); I10 Essential (primary) hypertension; I25.10 Atherosclerotic heart disease of native coronary artery without angina pectoris; I25.2 Old myocardial infarction; Z79.82 Long term (current) use of aspirin; Z95.5 Presence of coronary angioplasty implant and graft; F17.210 Nicotine dependence, cigarettes, uncomplicated
CPT/HCPCS: 66984; J0697; J2250; J3010; V2632

== ENCOUNTER 2023-01-15 08:58 | Emergency (ER) | payer OTHER ==
[~2023-01-15] VITALS: Ht 175.3 cm; Wt 98.6 kg
[2023-01-15 08:58] VITALS: TEMP 97.7
[~2023-01-15 08:58] MED LIST changes: -BSS IRRIG/VANCO(10MG)/TOBRA(5MG)/EPINEPH(1:1000-0.5CC)500ML BAG-ORONLY IR ONE; -CEFUROXIME 1MG/0.1ML INTRACAMERAL INJ As Ordered ONE; -CYCLOPENTOLATE 1% OPHTH SOLN 2ML BTL OS SCH; -LIDOCAINE 1% SDV 5ML VIAL As Ordered ONE; -LIDOCAINE 3.5 % 1ML OPHTH TOPICAL GEL OU ONE; -OFLOXACIN 0.3 % (OCUFLOX) OPTH SOL 5ML OS ONE; -PHENYLEPHRINE 10% OPHTH SOL 5ML OS PRN; -PHENYLEPHRINE 2.5% OPHTH SOL 2ML OS SCH; -TROPICAMIDE 1% OPHTH SOLN 15ML OS SCH
[2023-01-15] MEDS ORDERED: NS 1,000 ML IV SCH (09:15)
[2023-01-15 10:16] LABS: BASO # 0.1 10^3/uL (0.0-0.2); BASO % 0.6 % (0.0-1.0); EOS # 0.2 10^3/uL (0.0-0.5); EOS % 2.1 % (0.0-3.0); HEMATOCRIT 48.6 % (42.0-52.0); LYMPH # 2.5 10^3/uL (1.5-5.0); LYMPH % 28.5 % (24.0-44.0); MEAN CORPUSCULAR HEMOGLOBIN 31.1 pg (27.0-33.0); MEAN CORPUSCULAR HGB CONC 32.9 g/dl (32.0-36.5); MEAN CORPUSCULAR VOLUME 94.4 fl (80.0-96.0); MONO # 0.7 10^3/uL (0.0-0.8); MONO % 7.9 % (2.0-8.0); NEUTROPHILS # 5.4 10^3/uL (1.5-8.5); NEUTROPHILS % 60.6 % (36.0-66.0); PLATELET COUNT, AUTOMATED 198 10^3/uL (150-450); RED BLOOD COUNT 5.15 10^6/uL (4.30-6.10); WHITE BLOOD COUNT 8.9 10^3/uL (4.0-10.0)
[2023-01-15 10:33] LABS: ALBUMIN 3.7 G/DL (3.2-5.2); ALKALINE PHOSPHATASE 105 U/L (46-116); ALT/SGPT 33 U/L (7.0-40); AST/SGOT 33 U/L (<34); BILIRUBIN,DIRECT < 0.1 MG/DL (<0.4); BILIRUBIN,TOTAL 0.3 MG/DL (0.3-1.2); BLOOD UREA NITROGEN 18 MG/DL (9-23); CALCIUM LEVEL 9.4 MG/DL (8.3-10.6); CARBON DIOXIDE LEVEL 26 MMOL/L (20-31); CHLORIDE LEVEL 107 MMOL/L (98-107); CREATININE FOR GFR 0.74 MG/DL (0.70-1.30); GLOMERULAR FILTRATION RATE > 60.0 (>42); GLUCOSE, FASTING 103 MG/DL (74-106); LIPASE 136 U/L (12-53); POTASSIUM SERUM 5.2 MMOL/L (3.5-5.1); SODIUM LEVEL 139 MMOL/L (136-145); TOTAL PROTEIN 6.9 G/DL (5.7-8.2)
[2023-01-15] MEDS ORDERED: ISOVUE-370 76% 100ML VIAL As Ordered ONE (11:20)
[2023-01-15 14:15] VITALS: BP 171/84
[2023-01-15 14:21] VITALS: O2SAT 99
== END 2023-01-15 15:14 | disposition short-term general hospital (02) ==
LOC: M ED 08:58
DX: I71.02 Dissection of abdominal aorta (principal); I25.10 Atherosclerotic heart disease of native coronary artery without angina pectoris; I25.2 Old myocardial infarction; I10 Essential (primary) hypertension; Z87.891 Personal history of nicotine dependence; N20.0 Calculus of kidney; N28.1 Cyst of kidney, acquired; K76.89 Other specified diseases of liver; K80.20 Calculus of gallbladder without cholecystitis without obstruction; D35.02 Benign neoplasm of left adrenal gland; Z79.82 Long term (current) use of aspirin; Z79.899 Other long term (current) drug therapy
CPT/HCPCS: 71045; 72125; 74176; 74177; 80048; 80076; 81001; 83690; 85025; 87040; 87635; 93005; 93041; 99285; Q9967

== ENCOUNTER → 2023-06-24 | Outpatient (CLI) | payer OTHER ==
[~2023-06-24] MED LIST changes: +DOXY-440 PO; -DOXY-444 PO
[2023-06-24 11:05] LABS: HEMATOCRIT 46.9 % (42.0-52.0); HEMOGLOBIN 15.5 g/dl (13.5-17.5); MEAN CORPUSCULAR HEMOGLOBIN 32.2 pg (27.0-33.0); MEAN CORPUSCULAR VOLUME 97.3 fl (80.0-96.0); PLATELET COUNT, AUTOMATED 290 10^3/uL (150-450); RED BLOOD COUNT 4.82 10^6/uL (4.30-6.10); WHITE BLOOD COUNT 8.9 10^3/uL (4.0-10.0)
[2023-06-24 11:24] LABS: HEMOGLOBIN A1c 5.8 % (4.0-6.0)
[2023-06-24 11:39] LABS: ALBUMIN 3.4 G/DL (3.2-5.2); ALKALINE PHOSPHATASE 123 U/L (46-116); ALT/SGPT 26 U/L (7.0-40); AST/SGOT 20 U/L (<34); BILIRUBIN,TOTAL 0.5 MG/DL (0.3-1.2); BLOOD UREA NITROGEN 17 MG/DL (9-23); CALCIUM LEVEL 8.8 MG/DL (8.3-10.6); CARBON DIOXIDE LEVEL 30 MMOL/L (20-31); CHLORIDE LEVEL 106 MMOL/L (98-107); CHOLESTEROL LEVEL 167 MG/DL (<200); CHOLESTEROL RISK RATIO 3.68 (<5); CREATININE FOR GFR 0.87 MG/DL (0.70-1.30); GLOMERULAR FILTRATION RATE > 60.0 (>42); GLUCOSE, FASTING 90 MG/DL (74-106); HDL CHOLESTEROL 45.3 MG/DL (>40); LDL CHOLESTEROL 99.3 MG/DL (<100); NON-HDL-C 121.7 MG/DL; POTASSIUM SERUM 4.5 MMOL/L (3.5-5.1); PROSTATIC SPECIFIC AG MONITOR 38.88 NG/ML (< 4.00); SODIUM LEVEL 138 MMOL/L (136-145); TOTAL PROTEIN 6.2 G/DL (5.7-8.2); TRIGLYCERIDES LEVEL 112 MG/DL (<150)
[2023-06-24 11:40] LABS: THYROID STIMULATING HORMONE 3.452 uIU/ML (0.55-4.78)
[2023-06-24 11:43] LABS: TESTOSTERONE 542 NG/DL (241-827)
== END ==
LOC: M RAD 09:18
PROVIDERS: ATTEND Family Medicine
DX: J44.9 Chronic obstructive pulmonary disease, unspecified (principal); R53.83 Other fatigue; I10 Essential (primary) hypertension; Z79.82 Long term (current) use of aspirin; Z79.899 Other long term (current) drug therapy; R97.20 Elevated prostate specific antigen [PSA]

== ENCOUNTER → 2023-08-06 | Outpatient (REF) | payer OTHER, MEDICAID ==
[~2023-08-06] MED LIST changes: +FLOM0.4C39 PO; +MELO15TA28 PO
== END ==
LOC: M SMT 13:01
PROVIDERS: ATTEND Urology
DX: C61 Malignant neoplasm of prostate (principal); R97.20 Elevated prostate specific antigen [PSA]; F17.210 Nicotine dependence, cigarettes, uncomplicated; I25.2 Old myocardial infarction; Z79.899 Other long term (current) drug therapy; Z80.1 Family history of malignant neoplasm of trachea, bronchus and lung; Z95.5 Presence of coronary angioplasty implant and graft

== ENCOUNTER → 2023-08-17 | Outpatient (CLI) | payer OTHER, MEDICAID ==
[~2023-08-17] MED LIST changes: +ISOVUE-370 76% 100ML VIAL As Ordered ONE
== END ==
LOC: M RAD 11:15
PROVIDERS: ATTEND Family Medicine
DX: M47.812 Spondylosis without myelopathy or radiculopathy, cervical region (principal)

== ENCOUNTER → 2023-08-18 | Outpatient (CLI) | payer OTHER, MEDICAID ==
[~2023-08-18] MED LIST changes: -FLOM0.4C39 PO; -ISOVUE-370 76% 100ML VIAL As Ordered ONE; -MELO15TA28 PO
[2023-08-18 14:00] LABS: BLOOD UREA NITROGEN 17 MG/DL (9-23); CALCIUM LEVEL 8.8 MG/DL (8.3-10.6); CARBON DIOXIDE LEVEL 28 MMOL/L (20-31); CHLORIDE LEVEL 105 MMOL/L (98-107); CREATININE FOR GFR 0.96 MG/DL (0.70-1.30); GLOMERULAR FILTRATION RATE > 60.0 (>42); GLUCOSE, FASTING 80 MG/DL (74-106); POTASSIUM SERUM 4.8 MMOL/L (3.5-5.1); SODIUM LEVEL 137 MMOL/L (136-145)
== END ==
LOC: M LAB 11:03
PROVIDERS: ATTEND Urology
DX: C61 Malignant neoplasm of prostate (principal)

== ENCOUNTER → 2023-09-16 | Outpatient (CLI) | payer OTHER, MEDICAID ==
[~2023-09-16] MED LIST changes: +ISOVUE-370 76% 100ML VIAL As Ordered ONE
== END ==
LOC: M RAD 09:28
PROVIDERS: ATTEND Urology
DX: C61 Malignant neoplasm of prostate (principal); K57.30 Diverticulosis of large intestine without perforation or abscess without bleeding; K76.0 Fatty (change of) liver, not elsewhere classified; N28.1 Cyst of kidney, acquired
CPT/HCPCS: 74177; 78306; A9503; Q9967

== ENCOUNTER → 2023-10-15 | Outpatient (CLI) | payer MEDICAID, OTHER ==
[~2023-10-15] MED LIST changes: +FLOM0.4C39 PO; -ISOVUE-370 76% 100ML VIAL As Ordered ONE; +MELO15TA28 PO
== END ==
LOC: M ONCR 12:12
PROVIDERS: ATTEND General Practice
DX: C61 Malignant neoplasm of prostate (principal); F17.210 Nicotine dependence, cigarettes, uncomplicated; R35.0 Frequency of micturition; R39.15 Urgency of urination; R35.1 Nocturia; R39.14 Feeling of incomplete bladder emptying; R39.12 Poor urinary stream; Z79.818 Long term (current) use of other agents affecting estrogen receptors and estrogen levels; Z79.82 Long term (current) use of aspirin; Z80.42 Family history of malignant neoplasm of prostate

== ENCOUNTER → 2023-11-08 | Outpatient (RCR) | payer OTHER, MEDICAID ==
[~2023-11-08] MED LIST changes: +BICA50TA4 PO
== END ==
LOC: M ONCR 13:31
PROVIDERS: ATTEND General Practice
DX: Z51.0 Encounter for antineoplastic radiation therapy (principal); C61 Malignant neoplasm of prostate

== ENCOUNTER → 2023-11-23 | Outpatient (CLI) | payer OTHER, MEDICAID ==
[2023-11-23] MEDS: LEUPROLIDE 45MG SYRINGE KIT (LUPRON DEPOT) IM ONE (13:24)
== END ==
LOC: M ONCR 11:56
PROVIDERS: ATTEND General Practice
DX: C61 Malignant neoplasm of prostate (principal)
CPT/HCPCS: 96402; J9217

== ENCOUNTER → 2023-12-09 | Outpatient (RCR) | payer OTHER, MEDICAID ==
[~2023-12-09] MED LIST changes: +LOPE1CAP5 PO
== END ==
LOC: M ONCR 11-09 09:17
PROVIDERS: ATTEND General Practice
DX: Z51.0 Encounter for antineoplastic radiation therapy (principal); C61 Malignant neoplasm of prostate

== ENCOUNTER 2023-12-24 13:14 | Outpatient (RCR) | payer OTHER, MEDICAID ==
[2024-01-03] MEDS ORDERED: PANT40TA29 PO (09:57)
== END 2024-01-08 ==
LOC: M ONCR 13:14
PROVIDERS: ATTEND General Practice
DX: Z51.0 Encounter for antineoplastic radiation therapy (principal); C61 Malignant neoplasm of prostate

== ENCOUNTER → 2024-01-14 | Outpatient (CLI) | payer OTHER, MEDICAID ==
[2024-01-14 07:48] LABS: HEMATOCRIT 42.9 % (42.0-52.0); HEMOGLOBIN 14.2 g/dl (13.5-17.5); MEAN CORPUSCULAR HEMOGLOBIN 31.6 pg (27.0-33.0); MEAN CORPUSCULAR HGB CONC 33.1 g/dl (32.0-36.5); MEAN CORPUSCULAR VOLUME 95.5 fl (80.0-96.0); PLATELET COUNT, AUTOMATED 258 10^3/uL (150-450); RED BLOOD COUNT 4.49 10^6/uL (4.30-6.10)
[2024-01-14 08:01] LABS: HEMOGLOBIN A1c 6.1 % (4.0-6.0)
[2024-01-14 08:23] LABS: ALBUMIN 3.2 G/DL (3.2-5.2); ALKALINE PHOSPHATASE 128 U/L (40-129); ALT/SGPT 33 U/L (7.0-40); AST/SGOT 20 U/L (<34); BILIRUBIN,TOTAL 0.3 MG/DL (0.3-1.2); BLOOD UREA NITROGEN 21 MG/DL (9-23); CALCIUM LEVEL 9.9 MG/DL (8.3-10.6); CARBON DIOXIDE LEVEL 30 MMOL/L (20-31); CHLORIDE LEVEL 104 MMOL/L (98-107); CHOLESTEROL LEVEL 210 MG/DL (<200); CHOLESTEROL RISK RATIO 3.56 (<5); CREATININE FOR GFR 0.93 MG/DL (0.70-1.30); GLOMERULAR FILTRATION RATE > 60.0 (>42); GLUCOSE, FASTING 102 MG/DL (74-106); HDL CHOLESTEROL 58.9 MG/DL (>40); LDL CHOLESTEROL 129.1 MG/DL (<100); NON-HDL-C 151.1 MG/DL; POTASSIUM SERUM 4.8 MMOL/L (3.5-5.1); PROSTATIC SPECIFIC AG MONITOR 0.05 NG/ML (< 4.00); SODIUM LEVEL 139 MMOL/L (136-145); TOTAL PROTEIN 6.7 G/DL (5.7-8.2); TRIGLYCERIDES LEVEL 110 MG/DL (<150)
== END ==
LOC: M RAD 06:47
PROVIDERS: ATTEND Family Medicine
DX: I10 Essential (primary) hypertension (principal); R53.83 Other fatigue; E03.9 Hypothyroidism, unspecified; J44.9 Chronic obstructive pulmonary disease, unspecified; R91.8 Other nonspecific abnormal finding of lung field; R94.31 Abnormal electrocardiogram [ECG] [EKG]; Z79.899 Other long term (current) drug therapy

== ENCOUNTER → 2024-02-22 | Outpatient (REF) | payer OTHER, MEDICAID ==
[~2024-02-22] MED LIST changes: +MYRB50TA PO
[2024-02-22 13:29] LABS: APPEARANCE, URINE CLEAR (CLEAR); BACTERIA, URINE AUTO NEGATIVE (NEGATIVE); BILIRUBIN, URINE AUTO NEGATIVE (NEGATIVE); BLOOD, URINE BLOOD 1+ (NEGATIVE); COLOR, URINE YELLOW (YELLOW); GLUCOSE, URINE (UA) AUTO NEGATIVE (NEGATIVE); KETONE, URINE AUTO NEGATIVE (NEGATIVE); LEUKOCYTE ESTERASE, URINE AUTO NEGATIVE (NEGATIVE); NITRITE, URINE AUTO NEGATIVE (NEGATIVE); PROTEIN, URINE AUTO NEGATIVE (NEGATIVE); RBC, URINE AUTO 1 /HPF (0-3); SPECIFIC GRAVITY URINE AUTO 1.012 (1.002-1.035); SQUAMOUS EPITHELIAL CELL UR AU 0 /HPF (0-6); UROBILINOGEN, URINE AUTO 0.2 mg/dL (0.0-2.0); WBC, URINE AUTO 1 /HPF (0-3)
== END ==
LOC: M LAB REF 12:49
PROVIDERS: ATTEND General Practice
DX: C61 Malignant neoplasm of prostate (principal)

== ENCOUNTER → 2024-03-28 | Outpatient (CLI) | payer OTHER, MEDICAID | LOC: M ONCR 13:06 | PROVIDERS: ATTEND General Practice | DX: C61 Malignant neoplasm of prostate (principal); Z92.3 Personal history of irradiation; Z79.818 Long term (current) use of other agents affecting estrogen receptors and estrogen levels; F17.210 Nicotine dependence, cigarettes, uncomplicated; Z79.1 Long term (current) use of non-steroidal anti-inflammatories (NSAID); Z79.899 Other long term (current) drug therapy ==

== ENCOUNTER 2024-05-14 17:04 | Emergency (ER) | payer OTHER, MEDICAID ==
[~2024-05-14] VITALS: Ht 175.3 cm; Wt 105.8 kg
[2024-05-14 20:55] VITALS: BP 173/92; TEMP 97.6; O2SAT 94
== END 2024-05-14 21:00 | disposition home or self-care (01) ==
LOC: M ED 17:04
DX: S82.62XA Displaced fracture of lateral malleolus of left fibula, initial encounter for closed fracture (principal); Y92.9 Unspecified place or not applicable; Y93.9 Activity, unspecified; Y99.9 Unspecified external cause status; W00.0XXA Fall on same level due to ice and snow, initial encounter; I25.119 Atherosclerotic heart disease of native coronary artery with unspecified angina pectoris; I10 Essential (primary) hypertension; E78.5 Hyperlipidemia, unspecified; K21.9 Gastro-esophageal reflux disease without esophagitis; Z85.46 Personal history of malignant neoplasm of prostate; Z79.899 Other long term (current) drug therapy

== ENCOUNTER → 2024-05-29 | Outpatient (CLI) | payer OTHER, MEDICAID ==
[2024-05-29] MEDS: LEUPROLIDE 45MG SYRINGE KIT (LUPRON DEPOT) IM SCH (12:50)
== END ==
LOC: M ONCR 11:56
PROVIDERS: ATTEND General Practice
DX: C61 Malignant neoplasm of prostate (principal)
CPT/HCPCS: 96402; G0463; J9217

== ENCOUNTER 2024-08-13 16:43 | Emergency (ER) | payer OTHER, MEDICAID ==
[~2024-08-13] VITALS: Ht 175.3 cm; Wt 105.5 kg
[~2024-08-13 16:43] MED LIST changes: +CIPR750T2 PO; -FLOM0.4C39 PO; +PYRI1TAB5 PO; +TAMS-18 PO
[2024-08-13] MEDS: NS 500 ML IV ONE (17:37)
[2024-08-13] MEDS: MORPHINE 4 MG/ML 1 ML VIAL IV ONE (17:38)
[2024-08-13 17:48] LABS: BASO # 0.0 10^3/uL (0.0-0.2); BASO % 0.2 % (0.0-1.0); EOS # 0.1 10^3/uL (0.0-0.5); EOS % 1.6 % (0.0-3.0); LYMPH # 0.9 10^3/uL (1.5-5.0); LYMPH % 11.0 % (24.0-44.0); MONO # 0.7 10^3/uL (0.0-0.8); MONO % 8.6 % (2.0-8.0); NEUTROPHILS # 6.5 10^3/uL (1.5-8.5); NEUTROPHILS % 78.2 % (36.0-66.0); PLATELET COUNT, AUTOMATED 261 10^3/uL (150-450)
[2024-08-13 18:10] LABS: ALT/SGPT 22 U/L (7.0-40); AST/SGOT 21 U/L (<34); CALCIUM LEVEL 9.1 MG/DL (8.3-10.6); CARBON DIOXIDE LEVEL 29 MMOL/L (20-31); CHLORIDE LEVEL 105 MMOL/L (98-107); CREATININE FOR GFR 1.09 MG/DL (0.70-1.30); GLOMERULAR FILTRATION RATE 69.9 (>42); POTASSIUM SERUM 4.1 MMOL/L (3.5-5.1); SODIUM LEVEL 144 MMOL/L (136-145)
[2024-08-13] MEDS ORDERED: ISOVUE-370 76% 100 ML VIAL As Ordered ONE (18:42)
[2024-08-13 18:53] LABS: KETONE, URINE AUTO RFX NEGATIVE (NEGATIVE); LEUKOCYTE ESTERASE UR AUTO RFX NEGATIVE (NEGATIVE); MUCUS, URINE RFX SMALL (NEGATIVE); NITRITE, URINE AUTO RFX NEGATIVE (NEGATIVE); RBC, URINE AUTO RFX 2 /HPF (0-3); SQUAM EPITHELIAL CELL UR AURFX 0 /HPF (0-6); WBC, URINE AUTO RFX 1 /HPF (0-3)
[2024-08-13 19:51] VITALS: BP 116/74; TEMP 97.3; O2SAT 93
== END 2024-08-13 19:54 | disposition home or self-care (01) ==
LOC: M ED 16:43
DX: M54.50 Low back pain, unspecified (principal); K80.20 Calculus of gallbladder without cholecystitis without obstruction; I25.119 Atherosclerotic heart disease of native coronary artery with unspecified angina pectoris; I10 Essential (primary) hypertension; K21.9 Gastro-esophageal reflux disease without esophagitis; E78.5 Hyperlipidemia, unspecified; C61 Malignant neoplasm of prostate; F17.210 Nicotine dependence, cigarettes, uncomplicated; Z79.899 Other long term (current) drug therapy
CPT/HCPCS: 74177; 80048; 80076; 81001; 83690; 85025; 93041; 96361; 96374; 99284; Q9967

== ENCOUNTER 2024-08-14 09:40 | Outpatient (RCR) | payer OTHER, MEDICAID ==
[2024-08-25] MEDS ORDERED: TAMS1CAP17 (09:14)
== END 2024-09-07 ==
LOC: M PT 09:40
PROVIDERS: ATTEND General Practice
DX: C61 Malignant neoplasm of prostate (principal); R26.2 Difficulty in walking, not elsewhere classified

== ENCOUNTER 2024-08-25 09:05 | Emergency (ER) | payer OTHER, MEDICAID ==
[~2024-08-25] VITALS: Ht 175.3 cm; Wt 108.1 kg
[2024-08-25] MEDS ORDERED: TAMS1CAP17 (09:14)
[2024-08-25 10:01] LABS: VENOUS PH 7.427 UNITS (7.330-7.430)
[2024-08-25 10:02] LABS: VENOUS BASE EXCESS 2.3 (-2.0-2.0); VENOUS HCO3 26.9 MMOL/L (23.0-27.0); VENOUS O2 SATURATION 89.6 % (60.0-80.0); VENOUS PARTIAL PRESSURE CO2 41.7 mmHg (38.0-50.0); VENOUS PARTIAL PRESSURE O2 55.5 mmHg (30.0-50.0); VENOUS STANDARD HCO3 26.3 MMOL/L; VENOUS TOTAL CO2 28.2 MMOL/L (24.0-28.0)
[2024-08-25 10:16] LABS: BASO # 0.0 10^3/uL (0.0-0.2); BASO % 0.2 % (0.0-1.0); EOS # 0.0 10^3/uL (0.0-0.5); EOS % 0.1 % (0.0-3.0); LYMPH # 0.5 10^3/uL (1.5-5.0); LYMPH % 4.1 % (24.0-44.0); MONO # 0.9 10^3/uL (0.0-0.8); MONO % 7.7 % (2.0-8.0); NEUTROPHILS # 9.7 10^3/uL (1.5-8.5); NEUTROPHILS % 87.5 % (36.0-66.0); PLATELET COUNT, AUTOMATED 269 10^3/uL (150-450)
[2024-08-25 10:39] LABS: ALT/SGPT 36 U/L (7.0-40); AST/SGOT 46 U/L (<34); CALCIUM LEVEL 8.9 MG/DL (8.3-10.6); CARBON DIOXIDE LEVEL 29 MMOL/L (20-31); CHLORIDE LEVEL 103 MMOL/L (98-107); CREATININE FOR GFR 0.82 MG/DL (0.70-1.30); GLOMERULAR FILTRATION RATE > 90.0 (>42); POTASSIUM SERUM 4.3 MMOL/L (3.5-5.1); SODIUM LEVEL 142 MMOL/L (136-145)
[2024-08-25 10:58] LABS: CK-MB VALUE MASS 9.1 NG/ML (<3.6); CPK CREATINE PHOSPHOKINASE 146 U/L (46-171); MB/CK RELATIVE INDEX 6.23 (< OR =4); THYROXINE (T4) 8.0 UG/DL (4.5-10.9)
[2024-08-25 11:11] VITALS: BP 132/79
[2024-08-25] MEDS: FUROSEMIDE 20 MG/2 ML VIAL IV ONE (11:11)
[2024-08-25] MEDS ORDERED: ISOVUE-370 76% 100 ML VIAL As Ordered ONE (11:36)
[2024-08-25 11:38] LABS: CK-MB VALUE MASS 8.4 NG/ML (<3.6); CPK CREATINE PHOSPHOKINASE 128.0 U/L (46-171); MB/CK RELATIVE INDEX 6.56 (< OR =4)
[2024-08-25 13:28] LABS: CK-MB VALUE MASS 9.1 NG/ML (<3.6)
[2024-08-25 13:41] LABS: CPK CREATINE PHOSPHOKINASE 143.0 U/L (46-171); MB/CK RELATIVE INDEX 6.36 (< OR =4)
[2024-08-25] MEDS: HEPARIN SOD 5000 UNITS/ML 1 ML VIAL/SYRINGE IV ONE (14:40)
[2024-08-25] MEDS: HEPARIN DRIP 25,000 UNITS in IV 1 EA IV SCH (14:41)
[2024-08-25] MEDS: ASPIRIN 81 MG CHEWABLE TABLET PO ONE (14:44)
[2024-08-25] MEDS: POTASSIUM CHLORIDE 10MEQ SR TABLET PO ONE (14:44)
[2024-08-25 15:15] LABS: INR 0.92
[2024-08-25 16:52] VITALS: BP 134/92; TEMP 99.5; O2SAT 96
== END 2024-08-25 16:56 | disposition short-term general hospital (02) ==
LOC: M ED 09:05
DX: I21.4 Non-ST elevation (NSTEMI) myocardial infarction (principal); R00.0 Tachycardia, unspecified; I45.81 Long QT syndrome; I25.2 Old myocardial infarction; I25.119 Atherosclerotic heart disease of native coronary artery with unspecified angina pectoris; J44.9 Chronic obstructive pulmonary disease, unspecified; K21.9 Gastro-esophageal reflux disease without esophagitis; F17.210 Nicotine dependence, cigarettes, uncomplicated; Z86.73 Personal history of transient ischemic attack (TIA), and cerebral infarction without residual deficits; Z79.899 Other long term (current) drug therapy
CPT/HCPCS: 71045; 71275; 80047; 80048; 80076; 82550; 82553; 82803; 83605; 83880; 84436; 84443; 84484; 85025; 85610; 85730; 87040; 87486; 87581; 87633; 87798; 93005; 93041; 94760; 96365; 96366; 96375; 99285; J1938; Q9967

== ENCOUNTER → 2024-09-26 | Outpatient (CLI) | payer OTHER, MEDICAID ==
[~2024-09-26] MED LIST changes: +TAMS1CAP17
== END ==
LOC: M ONCR 11:22
PROVIDERS: ATTEND General Practice
DX: C61 Malignant neoplasm of prostate (principal); F17.210 Nicotine dependence, cigarettes, uncomplicated; Z79.818 Long term (current) use of other agents affecting estrogen receptors and estrogen levels; Z92.3 Personal history of irradiation
CPT/HCPCS: 36415; 84153; G0463

== ENCOUNTER 2025-01-04 21:48 | Emergency (ER) | payer OTHER, MEDICAID ==
[~2025-01-04] VITALS: Ht 175.3 cm; Wt 100.9 kg
[~2025-01-04 21:48] MED LIST changes: -FISH10005 PO; +FISH1CAP38 PO; +OXYB10TA23 PO
[2025-01-04] MEDS: ASPIRIN 81 MG CHEWABLE TABLET PO ONE (22:50)
[2025-01-04] MEDS: NITROGLYCERIN 0.4 MG SUBL TABLET SL PRN (22:52)
[2025-01-04 22:55] LABS: BASO # 0.0 10^3/uL (0.0-0.2); BASO % 0.3 % (0.0-1.0); EOS # 0.3 10^3/uL (0.0-0.5); EOS % 2.7 % (0.0-3.0); LYMPH # 1.0 10^3/uL (1.5-5.0); LYMPH % 10.2 % (24.0-44.0); MONO # 1.0 10^3/uL (0.0-0.8); MONO % 9.8 % (2.0-8.0); NEUTROPHILS # 7.8 10^3/uL (1.5-8.5); NEUTROPHILS % 76.8 % (36.0-66.0); PLATELET COUNT, AUTOMATED 267 10^3/uL (150-450)
[2025-01-04 23:04] LABS: ALT/SGPT 26 U/L (7.0-40); AST/SGOT 21 U/L (<34); CALCIUM LEVEL 8.4 MG/DL (8.3-10.6); CARBON DIOXIDE LEVEL 28 MMOL/L (20-31); CHLORIDE LEVEL 107 MMOL/L (98-107); CK-MB VALUE MASS 1.4 NG/ML (<3.6); CPK CREATINE PHOSPHOKINASE 73 U/L (46-171); CREATININE FOR GFR 1.19 MG/DL (0.70-1.30); GLOMERULAR FILTRATION RATE 62.5 (>42); MB/CK RELATIVE INDEX 1.91 (< OR =4); POTASSIUM SERUM 4.0 MMOL/L (3.5-5.1); SODIUM LEVEL 142 MMOL/L (136-145)
[2025-01-04 23:05] LABS: FREE T4 1.13 NG/DL (0.89-1.76)
[2025-01-04] MEDS ORDERED: ISOVUE-370 76% 100 ML VIAL As Ordered ONE (23:18)
[2025-01-04 23:24] VITALS: BP 131/70
[2025-01-05 00:12] LABS: CK-MB VALUE MASS 1.4 NG/ML (<3.6)
[2025-01-05 00:13] LABS: CPK CREATINE PHOSPHOKINASE 71.0 U/L (46-171); MB/CK RELATIVE INDEX 1.97 (< OR =4)
[2025-01-05 02:00] VITALS: BP 127/64; TEMP 97.6; O2SAT 92
== END 2025-01-05 02:15 | disposition home or self-care (01) ==
LOC: M ED 21:48
DX: R07.89 Other chest pain (principal); I25.2 Old myocardial infarction; I25.119 Atherosclerotic heart disease of native coronary artery with unspecified angina pectoris; I10 Essential (primary) hypertension; K21.9 Gastro-esophageal reflux disease without esophagitis; E78.5 Hyperlipidemia, unspecified; C61 Malignant neoplasm of prostate; F17.210 Nicotine dependence, cigarettes, uncomplicated; Z79.899 Other long term (current) drug therapy
CPT/HCPCS: 36415; 71046; 71275; 80048; 80076; 82550; 82553; 84439; 84443; 84484; 85025; 93005; 93041; 94760; 99285; Q9967